=== PATIENT | female | born 1970 | race Caucasian/White ===

== ENCOUNTER 2019-08-22 10:56 | Outpatient (CLI) | payer OTHER, SELFPAY ==
--- NOTE | ~2019-08-22 | DEXA_ITS ---
Bone Density Report Name: Luba Gomes Age: 49 Sex: Female Ethnicity: White Date of : 1970 Indication: osteopenia; monitoring treatment; hysterectomy; postmenopausal Referring Provider: ABHISHEK, JASVIR Study: Bone densitometry was performed. Exam Date: August 22, 2019 Accession number: [id number] Bone Density: Region BMD T-score Z-score Classification AP Spine (L1-L4) 0.853 -1.8 -1.2 Osteopenia Femoral Neck (Left) 0.789 -0.5 0.0 Normal Total Hip (Left) 0.787 -1.3 -0.9 Osteopenia Femoral Neck (Right) 0.719 -1.2 -0.6 Osteopenia Total Hip (Right) 0.727 -1.8 -1.4 Osteopenia Total Hip Mean 0.757 -1.6 -1.2 Osteopenia World Health Organization criteria for BMD impression classify patients as: Normal (T-score at or above -1.0), Osteopenia (T-score between -1.0 and -2.5), or Osteoporosis (T-score at or below -2.5). 10-year Fracture Risk: FRAX not reported because: Treated for osteoporosis Previous Exams: Region Exam Age BMD T-score BMD Change BMD Change Date g/cm2 vs Baseline vs Previous AP Spine(L1-L4) 08/22/2019 49 0.853 -1.8 0.038 0.030 01/04/2017 46 0.823 -2.0 0.008 -0.012 07/12/2013 43 0.834 -1.9 0.019 0.019 09/07/2007 37 0.815 -2.1 Total Hip(Left) 08/22/2019 49 0.787 -1.3 0.040 0.003 01/04/2017 46 0.784 -1.3 0.037* -0.027 07/12/2013 43 0.811 -1.1 0.064* 0.064* 09/07/2007 37 0.746 -1.6 Total Hip(Right) 08/22/2019 49 0.727 -1.8 -0.006 0.008 01/04/2017 46 0.718 -1.8 -0.014 -0.019 07/12/2013 43 0.737 -1.7 0.004 0.004 09/07/2007 37 0.733 -1.7 *Denotes significance at 95% confidence level, LSC for AP Spine = 0.022 g/cm2, LSC for Total Hip = 0.027 g/cm2 Clinical Information Provided by Patient: Is being treated for osteoporosis Has used the following medications: Boniva (i.e. ibandronate), HRT (i.e. estrogen/hormone therapy), Vitamin D, Calcium Has the following medical conditions: Hysterectomy Patient maximum height was 63 Menopause Age: 31 No regular weight bearing exercise Does not regularly consume dairy products Drinks caffeinated beverages Onset of menses at age 16 Number of children 2 Impression: The patient has low bone mass, based on the Total Spine T-score. No significant bone loss was observed. Discussio
== END 2019-08-22 10:57 ==
LOC: MICIMG 10:57
PROVIDERS: PCP Internal Medicine; Visit Provider Nurse Practitioner
DX: M85.88 Other specified disorders of bone density and structure, other site (principal); M85.851 Other specified disorders of bone density and structure, right thigh; M85.852 Other specified disorders of bone density and structure, left thigh
CPT/HCPCS: 77080